=== PATIENT | male | born 2005 | race Caucasian/White ===

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

== ENCOUNTER 2024-01-22 13:41 | Emergency (ER) | payer OTHER ==
[2024-01-22 13:50] VITALS: BP 107/76; PULSE 106; RESP 20; TEMP 101.3; BMI 20.3
[2024-01-22] MEDS ORDERED: IBUPROFEN 600 MG TABLET (FP) PO ONE (13:52)
[2024-01-22] MEDS ORDERED: ACETAMINOPHEN INJECTION 100 ML IVPB ONE (14:20)
[2024-01-22] MEDS ORDERED: KETOROLAC TROMETHAMINE 15 MG/ML VIAL ONE (14:20)
[2024-01-22] MEDS ORDERED: ONDANSETRON 4 MG/2 ML VIAL ONE (14:20)
[2024-01-22] MEDS: KETOROLAC TROMETHAMINE 15 MG/ML VIAL IVPUSH ONE (14:27)
[2024-01-22] MEDS: ONDANSETRON 4 MG/2 ML VIAL IVPUSH ONE (14:27)
[2024-01-22] MEDS: ACETAMINOPHEN 1000 MG/100 ML BAG IVPB ONE (14:28)
[2024-01-22] MEDS: SODIUM CHLORIDE 0.9% 500 ML INFUS.BAG IV ONE (14:28)
[2024-01-22 14:34] LABS: HEMATOCRIT 44.6 % (35.4-49); HEMOGLOBIN 16.2 G/dL (11.7-16.9); MCH 32.4 pg (25.7-33.7); MCHC 36.3 g/dl (32.0-35.9); MEAN CELL VOLUME 89.1 fl (80-96); MEAN PLT VOLUME 9.3 fl (7.5-11.1); PLATELET COUNT 141.8 10^3/uL (134-434); WHITE BLOOD COUNT 9.5 10^3/uL (4.0-10.8)
[2024-01-22 14:43] LABS: ALK PHOS 60 U/L (45-117); ANION GAP 11 mmol/L (4-13); BILIRUBIN,TOTAL 1.9 mg/dl (0.2-1); CALCIUM 9.6 mg/dl (8.5-10.1); CHLORIDE 101 mmol/L (98-107); CO2 25 mmol/L (21-32); CREATININE 0.7 mg/dl (0.6-1.3); GLUCOSE,RANDOM 80 mg/dl (74-106); POTASSIUM 3.7 mmol/L (3.5-5.1); SGOT/AST 18 U/L (15-37); SGPT/ALT 18 U/L (7-52); SODIUM 137 mmol/L (136-145); TOT PROT 7.6 g/dl (6.4-8.2)
[2024-01-22 14:51] LABS: PLATELET ESTIMATE ADEQUATE
[2024-01-22 16:07] LABS: THROAT:GRP A STREP NOT DETECTED (NOTDETECTED)
== END 2024-01-22 15:44 | disposition home or self-care (01) ==
LOC: FER 13:41
PROC: 3E033NZ Introduction of Analgesics, Hypnotics, Sedatives into Peripheral Vein, Percutaneous Approach (ICD-10-PCS; principal; 2024-01-22)
PROC: 3E033GC Introduction of Other Therapeutic Substance into Peripheral Vein, Percutaneous Approach (ICD-10-PCS; 2024-01-22)
PROC: 3E033GC Introduction of Other Therapeutic Substance into Peripheral Vein, Percutaneous Approach (ICD-10-PCS; 2024-01-22)
DX: R05.9 Cough, unspecified (principal); R50.9 Fever, unspecified; J02.9 Acute pharyngitis, unspecified; R06.02 Shortness of breath; R07.9 Chest pain, unspecified; Z20.822 Contact with and (suspected) exposure to COVID-19
CPT/HCPCS: 0241U-QW; 36415; 80053; 84484; 85027; 87651; 99284-25; J0131